=== PATIENT | female | born 1965 | race Caucasian/White ===

== ENCOUNTER → 2021-07-03 08:14 | Outpatient (CLI) | payer OTHER, SELFPAY ==
[2021-07-03 12:02] LABS: COVID19 -Nasal RAPID Negative (Negative)
== END ==
PROVIDERS: Family Provider Physician Assistant; PCP Physician Assistant; Visit Provider Nurse Practitioner Family
DX: Z20.822 Contact with and (suspected) exposure to COVID-19 (principal)
CPT/HCPCS: 87635

== ENCOUNTER 2021-07-04 11:16 | Day surgery (SDC) | payer OTHER, SELFPAY ==
[2021-07-04] VITALS (7 sets, daily range): BP systolic 110–134; BP diastolic 60–78; PULSE 58–95; RESP 12–16; TEMP 36–36.4; O2SAT 93–100; BMI 29.7
--- NOTE | 2021-07-04 12:36 | PM.HP.1 ---
History of Present Illness History of Present Illness Date Patient Seen: 07/04/21 Time Patient Seen: 12:37 Chief complaint: SDC Narrative: Personal history of colon polyps Patient History Family & Social History Social History: household members spouse Tobacco & Substance use: Smoking Status Former smoker alcohol intake frequency a few times a week Substance Use Type marijuana Meds Home Medications and Allergies Home Medications Medication Instructions Recorded Confirmed Type Synthroid 112 mcg PO DAILY 07/04/21 07/04/21 History gabapentin 200 mg PO BID 07/04/21 07/04/21 History lisinopril 20 mg PO DAILY 07/04/21 07/04/21 History venlafaxine 75 mg PO DAILY 07/04/21 07/04/21 History Allergies Allergy/AdvReac Type Severity Reaction Status Date / Time No Known Drug Allergies Allergy Verified 07/04/21 11:45 Review of Systems Review of Systems ROS: Yes All systems reviewed with the patient and are negative except as otherwise documented Exam Vital Signs (past 8 hours): - 07/04/21 12:05 Temperature 97.3 F L Pulse Rate 74 Respiratory Rate 16 Blood Pressure 132/76 Pulse Oximetry 100 Oxygen Delivery Method Room Air Const General: cooperative and comfortable Orientation: alert HENMT Head: normocephalic Ears: external ears normal Nose: external nose normal Face and sinus: normal facial exam Mouth: oral mucosae normal Eyes General: appearance normal, both eyes and all related structures Neck Neck: normal visual inspection Chest Chest: normal inspection of the chest Resp Effort & Inspection: normal respiratory effort Cardio Rate: regular rate GI Inspection: normal to inspection Skin General: no rashes or lesions noted and No jaundice Neuro General: patient alert and moves all extremities Cognition: normal cognition Speech: speech normal Extrem General: no pedal edema Psych Appearance: grossly normal Assessment & Plan Assessment & Plan narrative: Personal history of colon polyps. Colonoscopy is planned for today. Time Spent With Patient Critical Care time: I spent a total of [] minutes of critical care time on this patient's care today; this time is exclusive of procedural time.
--- NOTE | 2021-07-04 12:38 | PM.PREOP ---
Pre-operative Note COVID-19 COVID-19 status: Negative Result date/Date tested (Pos, Neg/Pending): 07/03/21 Interval Note History & Physical reviewed/Exam performed by Physician: Yes Changes to H&P: No H&P completed within 30 days and has changed as indicated here:: Today ASA Class (for procedural sedation): II
--- NOTE | 2021-07-04 14:15 | PM.OP.COLON ---
Operative Date/Time/Diagnoses Date of procedure: 07/04/21 Time of procedure: 14:16 Pre-op diagnosis: Polyps history Post-op diagnosis: same Procedure & Clinicians Study performed: Colonoscopy Same procedure as scheduled: Yes Indications: Polyps history Surgeon: Kj Weaver Procedure Notes SCOAP/Timeout: Done Procedure in detail: After the risks and benefits were explained, written and verbal informed consent was obtained. The patient was brought into the procedure room and placed into the left lateral decubitus position. Please see nurse waiter/waitress informal sedation notes. Digital rectal examination was accomplished. The scope was introduced into the patient and advanced under direct visualization to the cecum as identified by the appendiceal orifice and ileocecal valve. The scope was slowly withdrawn to carefully examine the mucosa for any defects or lesions. Comprehensive imaging was accomplished throughout the rectum including the dentate line. The colon was decompressed, the scope was then removed from the patient who tolerated the procedure well. Bowel prep adequate Pediatric colonoscope Scope withdrawal time: 6 minutes Sedation minutes: 13 Specimen(s): none sent Complications: none Impression: No significant polyps mass lesions or inflammatory features identified throughout. There were several diminutive classic hyperplastic appearing polyps in the rectosigmoid region. These were left alone. Mild internal hemorrhoids noted on direct views. Endoscopic diagnosis Visually unremarkable colonoscopy to cecum Post-procedure Recommendations: Colonoscopy in 5 years Plan for aftercare: Repeat colonoscopy 5 years time considering personal history of colon polyps. Disposition: PACU
== END 2021-07-04 14:50 | disposition home or self-care (01) ==
PROVIDERS: Family Provider Physician Assistant; PCP Family Medicine; Referring Provider Internal Medicine Gastroenterology; Visit Provider Internal Medicine Gastroenterology
PROC: 0DJD8ZZ Inspection of Lower Intestinal Tract, Via Natural or Artificial Opening Endoscopic (ICD-10-PCS; CPT 45378; principal; 2021-07-04 13:00)
DX: Z12.11 Encounter for screening for malignant neoplasm of colon (principal); Z86.010 Personal history of colon polyps
CPT/HCPCS: 45378; J2704

== ENCOUNTER → 2022-09-24 14:09 | Outpatient (CLI) | payer OTHER, SELFPAY | PROVIDERS: Family Provider Physician Assistant; PCP Registered Nurse; Referring Provider Registered Nurse; Visit Provider Registered Nurse | DX: Z13.820 Encounter for screening for osteoporosis (principal); M85.852 Other specified disorders of bone density and structure, left thigh; Z78.0 Asymptomatic menopausal state | CPT/HCPCS: 77080 ==

== ENCOUNTER → 2022-11-01 13:49 | Outpatient (CLI) | payer OTHER, SELFPAY ==
--- NOTE | 2022-11-01 | DI.RAD.S_ITS ---
PROCEDURE: XR CHEST 2V INDICATIONS: Chronic obstructive pulmonary disease, unspecified TECHNIQUE: 2 views of the chest were acquired. COMPARISON: None. FINDINGS: Surgical changes and devices: None. Lungs and pleura: Round, retrocardiac opacity. Mediastinum: Mediastinal contours are normal. Heart size is normal. Bones and chest wall: No suspicious bony abnormalities. Soft tissues appear unremarkable. IMPRESSION: Round, retrocardiac opacity could represent artifact from overlapping shadows versus nodule. Consider confirmation with chest CT without contrast. Dictated by: Jamie Villegas M.D. on 11/01/2022 at 14:36 Approved by: Jamie Villegas M.D. on 11/01/2022 at 14:37
--- NOTE | 2022-11-05 08:49 | PM.PFT.1 ---
Pulmonary Function Test Referral & Results Date Patient Seen: 11/01/22 Results: The spirometry demonstrates an FVC of 2.45 L which is 57% of predicted. The FEV1 was measured at 1.76 L which is 54% of predicted. The FEV1/FVC ratio was 72 which is 94% of predicted. Following the administration of bronchodilator there was 26% improvement in FEV1 and a 129% improvement in FEF 25-75%. Interpretation: This study demonstrates moderate obstructive lung disease with evidence of significant benefit following bronchodilator administration
== END ==
PROVIDERS: Family Provider Physician Assistant; PCP Registered Nurse; Referring Provider Chiropractor; Visit Provider Chiropractor
DX: J44.9 Chronic obstructive pulmonary disease, unspecified (principal); Z87.891 Personal history of nicotine dependence
CPT/HCPCS: 71046; 94060